=== PATIENT | male | born 1940 | race Caucasian/White ===

== ENCOUNTER 2023-01-23 08:10 | Inpatient (IN) | payer BC, OTHER ==
[~2023-01-23] VITALS: Ht 162.6 cm; Wt 72.6 kg
[2023-01-23] MEDS ORDERED: CEFAZOLIN SOD 2 GM in D5W 50 ML IV ONE (10:00)
[2023-01-23] MEDS ORDERED: LR 1,000 ML IV.SOLN IV ONE (10:34)
[2023-01-23] MEDS ORDERED: ceFAZolin SODIUM 1 GM VIAL ONE (10:34)
[2023-01-23] MEDS ORDERED: SUGAMMADEX SODIUM 200 MG/2 ML VIAL IV ONE (10:34)
[2023-01-23] MEDS ORDERED: PROPOFOL 200MG/ 20ML VIAL (DIPRIVAN) IV ONE (10:34)
[2023-01-23] MEDS ORDERED: NS 1000 ML IV.SOLN IV ONE (10:34)
[2023-01-23] MEDS ORDERED: KETOROLAC TROMETHAMINE 30 MG VIAL ONE (10:34)
[2023-01-23] MEDS ORDERED: VANCOMYCIN HCL 1000 MG/VIAL IV ONE (10:34)
[2023-01-23] MEDS ORDERED: ROCURONIUM BROMIDE 10 MG/ML (ZEMURON) ONE (10:34)
[2023-01-23] MEDS ORDERED: SEVOFLURANE 15 MIN GAS INH ONE (10:34)
[2023-01-23] MEDS ORDERED: DEXAMETHASONE SOD PHOSPHATE 4 MG/ML VIAL ONE (10:34)
[2023-01-23] MEDS ORDERED: LIDOCAINE 2%, 20 ML MDV ONE (10:34)
[2023-01-23] MEDS ORDERED: MIDAZOLAM HCL 5 MG/ML VIAL (VERSED) IV ONE (10:34)
[2023-01-23] MEDS ORDERED: ONDANSETRON HCL 4 MG/2 ML VIAL ONE (10:34)
[2023-01-23] MEDS ORDERED: NS IRRIG SOLN 1000 ML IR ONE (10:34)
[2023-01-23] MEDS ORDERED: MORPHINE SULFATE 10MG/10ML PF AMP ONE (10:34)
[2023-01-23] MEDS ORDERED: BUPIVACAINE /PF 0.25% 30 ML VIAL INJ ONE (10:34)
[2023-01-23] MEDS ORDERED: TRANEXAMIC ACID 1,000 MG/10 ML VIAL ONE (10:34)
[2023-01-23] MEDS ORDERED: WATER FOR IRRIGATION,STERILE 1,000 ML IRRIG.SOLN IR ONE (10:34)
[2023-01-23] MEDS ORDERED: MEPERIDINE HCL/PF 25 MG/ML DISP.SYRIN IVP PRN (11:45)
[2023-01-23] MEDS ORDERED: ONDANSETRON HCL 4 MG/2 ML VIAL IVP PRN ×2 (11:45→16:45)
[2023-01-23] MEDS ORDERED: DIPHENHYDRAMINE INJ 50 MG/ML VIAL IVP PRN (11:45)
[2023-01-23] MEDS ORDERED: LR 1,000 ML IV SCH (11:45)
[2023-01-23] MEDS ORDERED: hydrALAZINE HCL 20 MG/ML VIAL IVP PRN (11:45)
[2023-01-23] MEDS ORDERED: HYDROmorphone 1 MG/ML INJ. CARTRIDGE IVP PRN ×5 (11:45→16:45)
[2023-01-23] MEDS ORDERED: METOCLOPRAMIDE HCL 10 MG/2 ML VIAL IVP PRN ×2 (11:45→13:45)
[2023-01-23] MEDS ORDERED: NALOXONE HCL 0.4 MG/ML AMP (NARCAN) IVP PRN ×4 (11:45→16:45)
[2023-01-23] MEDS ORDERED: MONT-47 (11:58)
[2023-01-23] MEDS ORDERED: ACETAMINOPHEN I.V. 1000 MG 100 ML IV ONE (12:35)
[2023-01-23] MEDS ORDERED: BISACODYL 10 MG/SUPPOSITORY RC PRN (13:45)
[2023-01-23] MEDS ORDERED: DIPHENHYDRAMINE HCL 25 MG CAPSULE PO PRN (13:45)
[2023-01-23] MEDS ORDERED: LACTULOSE 20 GM/30 ML UDC PO PRN (13:45)
[2023-01-23] MEDS: KETOROLAC TROMETHAMINE 10 MG TABLET (TORADOL) PO SCH ×2 (14:00→22:00)
[2023-01-23] MEDS ORDERED: LORATADINE 10 MG TABLET PO PRN (14:00)
[2023-01-23] MEDS: ACETAMINOPHEN 500 MG TABLET PO SCH ×2 (14:00→23:06)
[2023-01-23 16:34] VITALS: BP_SYST 141
[2023-01-23] MEDS ORDERED: oxyCODONE HCL 5 MG TABLET PO PRN ×2 (16:45)
[2023-01-23] MEDS ORDERED: traMADol HCL HCL 50 MG TABLET (ULTRAM) PO PRN (16:45)
[2023-01-23] MEDS: ceFAZolin SODIUM 2 GM in D5W 50 ML IV SCH ×2 (16:59→23:28)
[2023-01-23 20:00] VITALS: BP_SYST 149
[2023-01-23] MEDS: SENNOSIDES/DOCUSATE SODIUM 1 TAB TABLET(SENOKOT-S) PO SCH (23:05)
[2023-01-24 00:10] VITALS: BP_SYST 142
[2023-01-24 05:12] LABS: BASOPHILS % (AUTO) 0.1 % (0.0-2.0); HEMATOCRIT 34.1 % (36-54); HEMOGLOBIN 11.7 g/dL (14.0-18.0); LYMPHOCYTES # (AUTO) 0.8 K/uL (1.0-5.5); LYMPHOCYTES % (AUTO) 7.1 % (20.5-51.5); MEAN CORPUSCULAR HEMOGLOBIN 33 pg (27-31); MEAN CORPUSCULAR HGB CONC 34 % (32-36); MEAN CORPUSCULAR VOLUME 96 fL (79.0-98.0); MONOCYTES # (AUTO) 1.2 K/uL (0.0-1.0); MONOCYTES % (AUTO) 10.9 % (1.7-9.3); NEUTROPHILS # (AUTO) 9.2 K/uL (1.8-7.7); NEUTROPHILS % (AUTO) 81.9 % (40.0-70.0); PLATELET COUNT (AUTO) 150 K/uL (130-430); RED BLOOD CELL COUNT(AUTO) 3.55 MIL/uL (4.2-6.2); RED CELL DISTRIBUTION WIDTH 14.5 % (9.0-15.0); WHITE BLOOD COUNT (AUTO) 11.3 K/uL (4.8-10.8)
[2023-01-24 05:40] LABS: ALANINE AMINOTRANSFERASE 18 U/L (12-78); ALBUMIN 2.7 g/dL (3.4-4.8); ANION GAP 8 (5-15); ASPARTATE AMINOTRANSFERASE 20 U/L (10-37); CHLORIDE 102 mmol/L (98-107); GLUCOSE 135 mg/dL (70-99); TOTAL BILIRUBIN 0.4 mg/dL (0.0-1.0); UREA NITROGEN, BLOOD 26 mg/dL (8-21)
[2023-01-24] MEDS: KETOROLAC TROMETHAMINE 10 MG TABLET (TORADOL) PO SCH (06:00)
[2023-01-24] MEDS: ACETAMINOPHEN 500 MG TABLET PO SCH ×2 (06:10→14:16)
[2023-01-24] MEDS ORDERED: NACL 0.9% 1,000 ML IV ONE (07:45)
[2023-01-24 08:00] VITALS: BP_SYST 166
[2023-01-24] MEDS ORDERED: DECADRON 4 MG TABLET PO SCH (09:00)
[2023-01-24] MEDS ORDERED: ASPIRIN 81 MG TAB.CHEW PO SCH (09:00)
[2023-01-24] MEDS ORDERED: MONTELUKAST 10 MG TABLET PO SCH (09:00)
[2023-01-24] MEDS: SENNOSIDES/DOCUSATE SODIUM 1 TAB TABLET(SENOKOT-S) PO SCH (10:16)
[2023-01-24] MEDS: ceFAZolin SODIUM 2 GM in D5W 50 ML IV SCH (10:35)
[2023-01-24] MEDS ORDERED: CELECOXIB 200 MG CAPSULE PO SCH (11:00)
[2023-01-24 11:17] VITALS: BP_SYST 139
== END 2023-01-24 16:15 | disposition home health service (06) | DRG 470 ==
LOC: SMU 08:10 → EDSTATUS 10:00 → SMU 13:44
PROVIDERS: ADMIT Student in an Organized Health Care Education/Training Program; ATTEND Student in an Organized Health Care Education/Training Program
PROC: 0SR903A Replacement of Right Hip Joint with Ceramic Synthetic Substitute, Uncemented, Open Approach (ICD-10-PCS; principal; 2023-01-23 10:44)
DX: M16.11 Unilateral primary osteoarthritis, right hip (principal); E44.0 Moderate protein-calorie malnutrition; Z68.27 Body mass index [BMI] 27.0-27.9, adult; E86.0 Dehydration
CPT/HCPCS: 36415; 72170-TC; 76001; 80053; 85025; 87081; 88304; 88311; 96379; 97110-GP; 97116-GP; 97163-GP; 97530-GP; J0131; J0690; J1100; J1885; J2001; J2250; J2274; J2405; J2704; J3370; J3490; J7030; J7060; J7120; J8540